=== PATIENT | male | born 1960 | race Caucasian/White ===

== ENCOUNTER → 2017-04-17 | Outpatient (CLI) | payer OTHER ==
[~2017-04-17] MED LIST: ATOR20TA38 PO
--- NOTE | 2017-04-18 03:11 | HKNOTE ---
DATE OF SERVICE: 04/17/2017 The patient is here to have preoperative evaluation. He is scheduled to have a right total hip repl acement on 04/18/2017 and has been cleared for surgery by Dr. Adrián Smith. He has severe arthritis of the left hip as well. Numerous questions were asked and answered. He has not given any blood f or autotransfusion. He understands the risks associated with using hospital blood. He is agreeable to using hospital blood if needed. He has read my booklet on hip arthritis and hip replacement radha samantha as well as my website. Dictated By: BOB LOPEZ/NTS Conf#: [id number] DID#: [id number]
== END | disposition home or self-care (01) ==
LOC: HKI 13:26
DX: Z01.818 Encounter for other preprocedural examination (principal); M16.11 Unilateral primary osteoarthritis, right hip
CPT/HCPCS: G0463

== ENCOUNTER 2017-04-18 05:30 | Inpatient (IN) | payer OTHER ==
[2017-04-18] VITALS (18 sets, daily range): BP systolic 101–121; BP diastolic 53–67; PULSE 54–90; RESP 6–20; Ht 190.5 cm; Wt 108.3 kg
[~2017-04-18] VITALS: Ht 190.5 cm; Wt 108.3 kg
[2017-04-18] MEDS ORDERED: VANCOMYCIN 1 GM (PMX) 250 ML IVPB ONE (06:00)
[2017-04-18] MEDS ORDERED: HIP PAIN COCKTAIL VANCO INJ SCH ×7 (06:00)
[2017-04-18] MEDS ORDERED: ONDANSETRON 4 MG INJ IV ONE (06:00)
[2017-04-18] MEDS ORDERED: oxyCODONE (CR) 10 MG TAB [oxyCONTIN] PO ONE (06:00)
[2017-04-18] MEDS ORDERED: DEXAMETHASONE 4 MG/ML 1 ML INJ IV ONE (06:00)
[2017-04-18] MEDS ORDERED: LANSOPRAZOLE 30 MG CAP PO ONE (06:00)
[2017-04-18] MEDS ORDERED: TRANEXAMIC ACID 2,000 MG in SOD CHLORIDE 0.9% 100 ML IVPB ONE (06:00)
[2017-04-18] MEDS ORDERED: LACTATED RINGER'S 1,000 ML IV* SCH (06:00)
[2017-04-18] MEDS ORDERED: CELECOXIB 200 MG CAP PO ONE (06:00)
[2017-04-18] MEDS ORDERED: ACETAMINOPHEN 1000MG/100ML IV 100 ML IVPB ONE (06:00)
[2017-04-18] MEDS ORDERED: FENTAnyl 50 MCG/ML VIAL ONE (06:17)
[2017-04-18] MEDS ORDERED: ROCURONIUM 50 MG INJ ONE (06:17)
[2017-04-18] MEDS ORDERED: MIDAZOLAM 1 MG/ML 2 ML INJ ONE (06:17)
[2017-04-18] MEDS ORDERED: LIDOCAINE 2% (SDV) 5 ML INJ ONE (06:17)
[2017-04-18] MEDS ORDERED: PROPOFOL 20 ML ONE (06:17)
[2017-04-18] MEDS ORDERED: NEOSTIGMINE 3 MG/3 ML SYRINGE ONE (06:17)
[2017-04-18] MEDS ORDERED: GLYCOPYRROLATE 0.4 MG INJ ONE (06:17)
[2017-04-18] MEDS ORDERED: DEXAMETHASONE 4 MG/ML 1 ML INJ ONE (06:18)
[2017-04-18] MEDS ORDERED: ONDANSETRON 4 MG INJ ONE (06:18)
[2017-04-18] MEDS ORDERED: LIDOCAINE 2%/EPI 30 ML INJ ONE (06:34)
--- NOTE | 2017-04-18 06:35 | HPN ---
Date/Time of Note Date/Time of Note DATE: 04/18/17 TIME: 06:35 Interval H&P Admission Note Pt. seen H&P reviewed: No system changes DEJAH HUGHES PA-C April 18, 2017 06:35
[2017-04-18] MEDS ORDERED: BACITRACIN 50000 UNITS INJ ONE (06:38)
[2017-04-18] MEDS ORDERED: GELATIN SIZE 100 SPONGE ONE ×2 (06:45→10:46)
[2017-04-18] MEDS ORDERED: ATOR20TA38 PO (06:45)
[2017-04-18] MEDS ORDERED: VANCOMYCIN 1 GM INJ ONE (06:45)
[2017-04-18] MEDS ORDERED: POLYMYXIN B 500000 UNIT INJ ONE (06:45)
[2017-04-18] MEDS ORDERED: ROPIVACAINE 0.2% 100 ML ONE (06:45)
[2017-04-18] MEDS ORDERED: HEPARIN 1000 UNITS/ML 10 ML INJ ONE (06:46)
--- NOTE | 2017-04-18 06:51 | HP ---
DATE OF ADMISSION: 04/18/2017 INTERNAL MEDICINE CONSULTATION AND PREOPERATIVE HISTORY AND PHYSICAL EXAMINATION HISTORY OF PRESENT ILLNESS: Dear Dr. 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 The patient has had increasing pain in his right hip, and he has been limping. The patient does try and remain as active as possible but does notice progressive limitation. He is entering the hospital for a hip replacement. PAST MEDICAL HISTORY: Problems include elevated cholesterol and somewhat arthritis. ALLERGIES: HE HAS NO ALLERGIES. PAST SURGICAL HISTORY: None. CURRENT MEDICATIONS: Atorvastatin 20 mg daily. FAMILY HISTORY: The patient is . He has 3 grown children to remain in the house and will b e available to assist him postoperatively. REVIEW OF SYSTEMS: GENERAL: No chills or fever. Weight is stable. HEENT: Does were contact lenses. He has no dizziness or headaches. No difficulty with hearing or swallowing. PULMONARY: He is not short of breath. No cough, no exertional chest pain, no history of hypertensi on or cardiac disease. GASTROINTESTINAL: Asymptomatic. GENITOURINARY: Nocturia 2 times a night with normal stream. MUSCULOSKELETAL: Other joint issues include the other hip as well, although the right is worse. Th e patient, as noted, remains active, likes to surf and play golf. PHYSICAL EXAMINATION: GENERAL: Reveals a pleasant stalky built gentleman in no acute distress, 6 feet 3 inches tall, 240 pounds, BMI of 30. VITAL SIGNS: Blood pressure is 122/68, pulse 51. He is afebrile. HEENT: Reveals some bilateral swimmers ears without infection. LUNGS: Clear. HEART: Tones are regular. I hear no murmurs. ABDOMEN: Without palpable mass, organ, or tenderness. EXTREMITIES: No clubbing, cyanosis, edema. He has good peripheral pulses. His right hip is painfu l and has very poor range of motion. The left hip less so. INITIAL IMPRESSION: 1. Preoperative status, right total hip replacement with a diagnosis of primary osteoarthritis, rig ht hip. 2. Mixed hyperlipidemia. DISCUSSION: At this time, the patient's medical status is acceptable for surgery. Chest x-ray is n ormal. On electrocardiogram, there is low voltage, consistent with his chest wall expansion. He mohan s a mild left axis deviation. Laboratory tests have been done and forwarded to you and are within normal limits. We will be glad to follow him up with you postoperatively. Dictated By: KARY MORGAN MD, SR/MAYDA Conf#: [id number] DID#: [id number]
[2017-04-18] MEDS ORDERED: SUCCINYLCHOLINE CHLORIDE 100 MG/5 ML SYG IV ONE (07:00)
[2017-04-18] MEDS ORDERED: SOD CHLORIDE 0.9% 50 ML, TRANEXAMIC ACID 2,000 MG IRR SCH ×2 (07:30)
[2017-04-18] MEDS ORDERED: ROPIVACAINE 0.2% 100ML BAG INJ ONE (08:00)
[2017-04-18] MEDS ORDERED: hydrALAzine 20 MG INJ ONE (08:12)
[2017-04-18] MEDS ORDERED: MEPERIDINE 25 MG INJ IV PRN (10:00)
[2017-04-18] MEDS ORDERED: hydrALAzine 20 MG INJ IV PRN (10:00)
[2017-04-18] MEDS ORDERED: DIPHENHYDRAMINE 50 MG INJ IV PRN (10:00)
[2017-04-18] MEDS ORDERED: LABETALOL HCL 20MG INJ IV PRN (10:00)
[2017-04-18] MEDS ORDERED: HYDROmorphONE (0.2 MG/ML) 10ML SYG IV PRN ×2 (10:00)
[2017-04-18] MEDS ORDERED: FENTAnyl 50 MCG/ML VIAL IV PRN ×2 (10:00)
[2017-04-18] MEDS ORDERED: MIDAZOLAM 1 MG/ML 2 ML INJ IV PRN (10:00)
[2017-04-18] MEDS ORDERED: EPHEDrine SULFATE 50 MG/5 ML SYG IV PRN (10:00)
[2017-04-18] MEDS ORDERED: ATROPINE 1 MG/10 ML SYRINGE IV PRN (10:00)
[2017-04-18] MEDS ORDERED: OXYCODONE/ACETAMINOPHEN (5/325) TAB PO PRN ×2 (10:00)
[2017-04-18] MEDS ORDERED: morphine (1 MG/ML) 10ML SYRINGE IV PRN ×3 (10:00)
[2017-04-18] MEDS ORDERED: BISACODYL 10 MG SUPP PR PRN (11:30)
[2017-04-18] MEDS ORDERED: SENNA/DOCUSATE NA (8.6MG/50MG) TAB PO PRN (11:30)
[2017-04-18] MEDS ORDERED: HYDROmorphONE 0.2 MG/ML PCA IV PRN (11:30)
[2017-04-18] MEDS ORDERED: oxyCODONE 5 MG TAB PO PRN ×2 (11:30)
[2017-04-18] MEDS ORDERED: MAGNESIUM HYDROXIDE 30ML CUP PO PRN (11:30)
[2017-04-18] MEDS ORDERED: NA PHOSPHATE/BIPHOS 133 ML ENEMA PR PRN (11:30)
[2017-04-18] MEDS ORDERED: DOCUSATE SODIUM 100 MG CAP PO ONE ×2 (11:30→11:57)
[2017-04-18] MEDS ORDERED: BETHANECHOL 25 MG TAB PO PRN (11:30)
[2017-04-18] MEDS ORDERED: ZOLPIDEM 5 MG TAB PO PRN (11:30)
[2017-04-18] MEDS ORDERED: ASPIRIN (EC) 325 MG TAB PO ONE ×2 (11:30→11:57)
[2017-04-18] MEDS ORDERED: DIPHENHYDRAMINE 50 MG INJ IM PRN (11:30)
[2017-04-18] MEDS ORDERED: NACL 0.9% 3 ML SYG IV SCH (11:30)
[2017-04-18] MEDS ORDERED: MEPERIDINE 10 MG/ML 30 ML PCA IV PRN (11:30)
[2017-04-18] MEDS ORDERED: NALOXONE (0.4 MG/ML) INJ IV PRN (11:30)
[2017-04-18] MEDS: ONDANSETRON 4 MG INJ IV PRN ×2 (11:52→11:59)
[2017-04-18] MEDS: HYDROmorphONE (0.2 MG/ML) 10ML SYG IV PRN ×2 (11:52→12:13)
[2017-04-18] MEDS ORDERED: CEFAZOLIN 1 GM/50 ML (PMX) 50 ML IVPB ONE (11:57)
[2017-04-18] MEDS: ACETAMINOPHEN 1000MG/100ML IV 100 ML IVPB SCH ×2 (11:59→19:51)
[2017-04-18] MEDS: CEFAZOLIN 1 GM/50 ML (PMX) 50 ML IVPB SCH ×2 (12:00→20:24)
--- NOTE | 2017-04-18 12:20 | RADRPT ---
PROCEDURE: XR Hip. CLINICAL INDICATION: Postop TECHNIQUE: Single frontal view of the right hip was performed. COMPARISON: None. FINDINGS: A noncemented right hip hemiarthroplasty is present in near anatomic alignment without acute radiogr aphic abnormality. Recent surgical changes seen in the soft tissues. IMPRESSION: 1. Non cemented right hip hemiarthroplasty in near anatomic alignment. RPTAT: EE .Kaiser Orozco MD, MD Date Time Electronically viewed and signed by .Kaiser Orozco MD, on 04/18/2017 12:20 .d/
--- NOTE | 2017-04-18 12:22 | RADRPT ---
PROCEDURE: X-ray fluoroscopy guidance CLINICAL INDICATION: Hip replacement TECHNIQUE: Fluoroscopic guidance was utilized for right hip hemiarthroplasty has been. COMPARISON: None available FINDINGS: Fluoroscopic guidance was utilized for a noncemented right hip hemiarthroplasty. Alignment is near anatomic. 0.7 minutes of fluoroscopy time was utilized for the procedure. A total of 7 fluoroscopi c spot images were obtained. IMPRESSION: 1. X-ray fluoroscopic guidance utilized for non cemented right hip hemiarthroplasty. RPTAT: EE .Kaiser Orozco MD, Date Time Electronically viewed and signed by .Kaiser Orozco MD, on 04/18/2017 12:22 .d/
--- NOTE | 2017-04-18 12:28 | OPR ---
DATE OF OPERATION: 04/18/2017 PREOPERATIVE DIAGNOSIS: Exceedingly severe degenerative osteoarthritis of the right hip. POSTOPERATIVE DIAGNOSIS: Exceedingly severe degenerative osteoarthritis of the right hip. PROCEDURE PERFORMED: Right total hip replacement. SURGEON: Jayro Alejandre MD GOLF COURSE DESIGNER: CLEOPATRA Samuel ANESTHESIOLOGIST: Pratik Norris MD FINDINGS AT SURGERY: The patient was found to have exceedingly severe degenerative osteoarthritis o f the right hip. The femoral head had no normal-appearing articular cartilage. The patient's bone quality was satisfactory for a female of her age. JUSTIFICATION FOR SURGERY: The patient has endstage osteoarthritis of the right hip. There can be no scientific expectation that any further conservative measures would give this patient any relief from her incapacitating pain. DESCRIPTION OF PROCEDURE: The patient was given intravenous antibiotics approximately 1 hour prior to surgery. An epidural anesthetic was initiated in the preanesthesia area. The patient was then m prabhu to the operating room and transferred to a [place] table. General anesthesia was induced with int ubation and full muscle paralysis. Plain and digital x-rays were obtained of the pelvis and the ope rative hip and stored in the computer. Measurements were made on the operative hip to determine the degree of leg length and offset. The intent was to use the operative hip as the basic template for restoring the geometry of the operative hip (i.e., the opposite hip was not used as the template). On the pelvic x-ray, the correct orientation of the pelvis for surgery was determined. Note that [employer] computer was used throughout for making all leg length and angular measurements. The operative thigh, leg and lower abdomen were prepared and draped in the usual sterile fashion. A n oblique incision was made over the lateral aspect of the right thigh. Incision commenced 3 cm dis topher and 3 cm posterior to the anterior superior iliac spine. The total length of the incision was a pproximately 100 mm. The incision was deepened through the subcutaneous fat to expose the fascia ov er the tensor muscle. The fascia was opened to expose the muscle. Bleeding points were cauterized throughout by diathermic coagulation. The fascia over the tensor was incised by blunt and digital r esection. The interval was found between the tensor muscle and the anterior capsule as well as the rectus muscle. Superior and inferior cobra retractors were now placed outside the capsule to expose the anterior surface of the capsule. A third cobra retractor was placed over the brim of the pelvi s. The reflected head of rectus was first elevated with a Loco elevator. The anterior capsule was incised along the length of the intratrochanteric line with the hip externa lly rotated. The incision extended around the proximal femur to the lesser trochanter. The incisio n was now extended vertically to the edge of the acetabulum. The capsular incision was extended fausto ng the anteromedial extent of the anterior rim of the acetabulum. A cobra retractor was placed insi de the capsule medially. The lateral aspect of the anterior capsule was incised and a second cobra retractor was placed inside the capsule around the superior femoral neck. Three turns of traction were placed on the operative leg. The femoral head was now freed from the a cetabulum using a skid. The remaining superior and anterior capsule was incised and the femoral nec k was then incised. A corkscrew was inserted into the femoral head from the anterior aspect of the femoral head. Using the corkscrew as a handle and using a skid, the hip was now completely dislocat ed. The hip was reduced. An osteotomy of the femoral neck was made at the location determined by preope rative templating. The femoral head was now removed. By suitable retraction, the acetabulum was exposed. Soft tissues around the folia removed. The jordan tabulum was enlarged and deepened to 53 mm. The last acetabular reamings were inserted under fluoro scopic control and the correct orientation of the socket and if the reaming were determined by the [employer] computer and direct x-ray visualization. The acetabular component was now installed with an orientation of 42 degrees of abduction and 20 degrees of anteversion. The [employer] computer was used for making these measurements. The proximal femur was now exposed by hyperextending and adducting the hip joint. A retractor was p laced posterior to the femoral neck so as to retract the proximal femur laterally. A hook was then placed around the proximal femur deep to the tensor muscle and as proximal as possible. The hook wa s attached to the table maty and the femur was elevated as high as we could go without force being a pplied to the femur. The superior and proximal femoral capsules were now incised. The cobra retractor was placed behind the posterior rim of the acetabulum. A Steinmann pin was driven into the pelvis superior to the jordan tabulum to retract the soft tissues. A third cobra was placed over the rim of the acetabulum and th e fourth cobra was placed along the medial aspect of the acetabulum. This allowed further mobilizat ion of the proximal femur. A canal finder was used to find the canal. The proximal femur is now br oached starting with the smallest broach and progressively increasing until we felt we could go no f urther. At this point, the size 12 broach was left in place and the hip was reduced. X-rays were t aknette and these x-rays showed that we could broach up 1 more size. The hip was reduced with the shor test femoral head and neck assembly and measurements were made to determine what neck lengths and of fset changes were still needed. The hip was dislocated. The next size broach (size 13) was now installed. This broach was found to be completely stable. The hip was reduced using the 12 mm femoral head and neck assembly and the s ize 13 broach. Measurements indicated that the leg lengths were unchanged. The offset was unchange d. This was felt to be an appropriate combination. The trial components were placed and the retrac tor was placed anterior to the acetabulum and the hip was hyperextended using the [place]ublin table until t he spar touched the floor. This showed that the hip was totally stable in the anterior aspect of th e socket. The leg was detached from the [place] table and the hip was now put through a full functiona l range of motion and was found to be stable to the limits of motion. As trial components were removed, the permanent plastic acetabular component was installed. This wa s followed by installing the permanent femoral component. The table was now returned to a neutral p osition and the hip was dislocated. The wound was frequently irrigated throughout the procedure wit h normal saline containing antibiotics using pulsatile lavage. The permanent femoral component was installed, it fit perfectly and appeared to be completely stable . The permanent femoral head was installed and the hip was reduced. Superficial and deep Hemovac drains were placed. Soft tissues around the hip were injected with a m ixture of Naropin, Toradol, morphine and clonidine for pain management. The deep tissues were now c losed using interrupted Vicryl. The subcutaneous tissues were closed using a Quill type stitch. Th e skin was closed using adriane. The usual sterile dressings were applied and an abduction pillow was placed between the patient's le gs before transferring her to a rcorona. The patient returned to the recovery room in stable conditi on. There were no problems or complications throughout this operation as far as is known. Although multiple x-rays were taken in the operating room and saved, the permanent x-ray record was obtained in the recovery room to be sure that the hip did not dislocate in transfer. IMPLANT COMPONENT INFORMATION: Femoral component: 15 Corail [id number]. Acetabular component: 54 mm [place] with Gription. Femoral head size: 38 mm. Femoral neck size: +12 mm. 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 Leg length: Short 1 mm from the starting length. Offset: Unchanged from the starting offset. Reinfusion was used. The total blood loss was 800 mL and 375 mL was salvaged. Dictated By: JAYRO LOPEZ/MAYDA Conf#: [id number] DID#: [id number]
[2017-04-18] MEDS: ONDANSETRON 4 MG INJ IV SCH ×3 (13:06→23:26)
[2017-04-18] MEDS: DEXTROSE 5%-LR 1,000 ML IV SCH ×2 (14:17→23:59)
[2017-04-18] MEDS ORDERED: TRANEXAMIC ACID IVPB ONE ×2 (14:30→17:30)
[2017-04-18] MEDS ORDERED: SOD CHLORIDE 0.9% IVPB ONE ×2 (14:30→17:30)
--- NOTE | 2017-04-18 17:19 | PN ---
Date/Time of Note Date/Time of Note DATE: 04/18/17 TIME: 17:17 Assessment/Plan VTE Prophylaxis VTE Prophylaxis Intervention: other (asa) Lines/Catheters IV Catheter Type (from Nrsg): Peripheral IV Subjective 24 Hr Interval Summary Free Text/Dictation he is post rthr today vs ok some persistent nausea, no vomit, not much co pain alert lungs clear abd soft absent bs dressing rt thigh is dry, drain in place, no edema if zofran not helpful could try reglan Gastrointestinal: nausea Exam/Review of Systems Vital Signs Vitals Vital Signs Date Time Temp Pulse Resp B/P Pulse Ox O2 Delivery O2 Flow Rate FiO2 04/18/17 15:30 97.6 79 20 106/53 93 Nasal Cannula 2.0 Medications Medications Current Medications Dextrose/Lactated Ringer's (D5-Lr) 1,000 ml @ 80 mls/hr [id number] IV Last administered on 04/18/17 14:17; Admin Dose 80 MLS/HR; Start 04/18/17 at 11:29 Hydromorphone HCl (Dilaudid [employer]) Q4PCA PRN IV SEVERE PAIN 8-10; Start at 11:30; Stop 04/19/17 at 11:29 Meperidine HCl (Demerol [employer]) Q4PCA PRN IV SEVERE PAIN 8-10; Start 04/18/17 at 11:30; Stop 04/19/17 at 11:29 Oxycodone HCl (Roxicodone) 20 mg Q3H PRN PO PAIN LEVEL 8-10; Start 04/18/17 at 11:30 Oxycodone HCl (Roxicodone) 10 mg Q3H PRN PO PAIN LEVEL 4-7; Start 04/18/17 at 11:30 Oxycodone HCl 5 mg 5 mg Q3H PRN PO PAIN LEVEL 1-3; Start 04/18/17 at 11:30 Acetaminophen (Ofirmev 1000mg/ 100ml Iv) 100 ml @ 400 mls/hr Q8H IVPB Last administered on 04/18/17 11:59; Admin Dose 400 MLS/HR; Start 04/18/17 at 11:30 ; Stop 04/20/17 at 03:44 Zolpidem Tartrate (Ambien) 5 mg HS PRN PO INSOMNIA; Start 04/18/17 at 11:30 Ondansetron HCl 4 mg 4 mg Q6H IV Last administered on 04/18/17 16:51; Admin Dose 4 MG; Start 04/18/17 at 11:30; Stop 04/19/17 at 05:31 Cefazolin Sodium (Ancef 1 Gm/50 ml (Pmx)) 50 ml @ 100 mls/hr Q8H IVPB Last administered on 04/18/17t 12:00; Admin Dose 100 MLS/HR; Start 04/18/17 at 11:30 ; Stop 04/19/17 at 03:59 Aspirin (Ecotrin) 325 mg BID PO ; Start 04/19/17 at 09:00 Celecoxib (Celebrex) 200 mg BID PO ; Start 04/19/17 at 09:00 Dexamethasone (Decadron) 4 mg DAILY@07 IV ; Start 04/19/17 at 07:00; Stop at 06:59 Pantoprazole (Protonix Tab) 40 mg DAILY@06 PO ; Start 04/19/17 at 06:00 Docusate Sodium/ Ferrous Fumarate (Timi-Sequels) 1 tab BID PO ; Start 04/19/17 at 09:00 Docusate Sodium (Colace) 200 mg BID PO ; Start 04/19/17 at 09:00; Stop 04/21/17 at 21:01 Simethicone (Mylicon) 80 mg TID PRN PO DISTENSION/GAS/BLOATING; Start 04/18/17 at 11:30 Senna/Docusate Sodium (Senokot-S) 2 tab BID PRN PO CONSTIPATION; Start at 11:30 Magnesium Hydroxide (Milk Of Mag) 30 ml HS PRN PO CONSTIPATION; Start 04/18/17 at 11:30 Bisacodyl (Dulcolax Supp) 10 mg DAILY PRN ND CONSTIPATION; Start 04/18/17 at 11 :30 Sodium Biphosphate/ Sodium Phosphate (Fleet Enema) 133 ml DAILY PRN ND CONSTIPATION; Start 04/18/17 at 11:30 Diphenhydramine HCl (Benadryl) 25 mg Q4H PRN IM ITCHING OR RASH; Start at 11:30 Ketorolac Tromethamine (Toradol) 15 mg DAILY@06 PRN INJ ADMINSTER BY SURGEON ONLY; Start 04/19/17 at 06:00; Stop 04/23/17 at 05:59 Bupivacaine HCl/ Epinephrine Bitart (Marcaine 0.25%/ Epi (Sdv) 30 ml) 20 ml DAILY@06 PRN INJ ADMINSTER BY SURGEON ONLY; Start 04/19/17 at 06:00; Stop at 05:59 Naloxone HCl (Narcan) 0.2 mg Q2M PRN IV DECREASED REPIRATORY RATE; Start at 11:30 KARY MORGAN MD April 18, 2017 17:19
[2017-04-18] MEDS: oxyCODONE 5 MG TAB PO PRN (17:32)
[2017-04-18] MEDS ORDERED: METOCLOPRAMIDE 10 MG INJ IV PRN (20:00)
[2017-04-19 00:05] VITALS: BP 100/55; PULSE 52; RESP 18
[2017-04-19] MEDS: ACETAMINOPHEN 1000MG/100ML IV 100 ML IVPB SCH ×3 (04:09→20:49)
[2017-04-19] MEDS: CEFAZOLIN 1 GM/50 ML (PMX) 50 ML IVPB SCH (04:14)
[2017-04-19] MEDS: DEXTROSE 5%-LR 1,000 ML IV SCH (04:14)
[2017-04-19 04:28] VITALS: BP 104/57; PULSE 58; RESP 18
[2017-04-19] MEDS: ONDANSETRON 4 MG INJ IV SCH (05:21)
[2017-04-19] MEDS: PANTOPRAZOLE (EC) 40 MG TAB PO SCH (05:21)
[2017-04-19] MEDS ORDERED: BUPIVACAINE 0.25%/EPI (SDV) 30 ML INJ INJ PRN (06:00)
[2017-04-19] MEDS ORDERED: KETOROLAC 15 MG INJ INJ PRN (06:00)
[2017-04-19] MEDS: DEXAMETHASONE 4 MG/ML 1 ML INJ IV SCH (06:14)
[2017-04-19 06:21] LABS: ADD SCAN DIFF NO
[2017-04-19 06:23] LABS: BASOPHILS % 0.1 % (0.0-2.0); EOSINOPHILS % 0.2 % (0.0-7.0); HEMATOCRIT 33.7 % (42.0-52.0); HEMOGLOBIN 11.3 g/dl (14.0-18.0); LYMPHOCYTES # 1.2 10^3/ul (0.8-2.9); LYMPHOCYTES % 14.2 % (15.0-51.0); MEAN CORPUSCULAR HEMOGLOBIN 31.2 pg (29.0-33.0); MEAN CORPUSCULAR HGB CONC 33.5 g/dl (32.0-37.0); MEAN CORPUSCULAR VOLUME 93.1 fl (82.0-101.0); MONOCYTE # 0.8 10^3/ul (0.3-0.9); MONOCYTES % 9.5 % (0.0-11.0); NEUTROPHIL # 6.5 10^3/ul (1.6-7.5); NEUTROPHILS % 75.7 % (39.0-77.0); PLATELET COUNT 164 10^3/UL (140-415); RED BLOOD COUNT 3.62 10^6/ul (4.70-6.10); RED CELL DISTRIBUTION WIDTH 12.2 % (11.5-14.5); WHITE BLOOD COUNT 8.6 10^3/ul (4.8-10.8)
--- NOTE | 2017-04-19 07:36 | PN ---
Date/Time of Note Date/Time of Note DATE: 04/19/17 TIME: 07:33 Assessment/Plan VTE Prophylaxis VTE Prophylaxis Intervention: ambulation, SCD's, other (Aspirin 325 mg twice daily) Lines/Catheters IV Catheter Type (from Nrsg): Peripheral IV Assessment/Plan Assessment/Plan -Hemovac Removed Today. 460 cc output. -Continue with Zofran as needed for nausea -Pain Cocktail Given -Pain Meds as needed -Tegaderm with pad provided today and discussion regarding how to use when showering after discharge from hospital discussed in detail today. Discharge plan is to return home. Likely patient will be discharged tomorrow but if needs extra time he will be discharged on postop day 3. -Dress change performed today -OOB with PT -ASA/SCDs for DVT Prophylaxis -Continue monitoring with Internal Medicine -Patient Stable Subjective 24 Hr Interval Summary 56-year-old male postop day 1 status post right total hip arthroplasty via anterior route. Denies any pain complaints to the right hip. Patient did have episode of significant nausea as anesthesia was wearing off. Denies any vomiting. Denies any diarrhea. Overall, patient states that he is doing okay as nausea has subsided. He was up and out of bed yesterday with front wheeled walker. Denies any falls. Denies any chest pain/tightness. Denies any shortness of breath. Sitting upright today when walking in the room and patient is very pleasant. Constitutional: no complaints Exam/Review of Systems Vital Signs Vitals Vital Signs Date Time Temp Pulse Resp B/P Pulse Ox O2 Delivery O2 Flow Rate FiO2 04/19/17 04:28 58 18 104/57 94 Room Air 04/18/17 21:28 2.0 04/18/17 20:01 98.3 Intake and Output 04/18/17 04/18/17 04/19/17 15:00 23:00 07:00 Intake Total 3485.8 ml 1060.8 ml 2380 ml Output Total 805 ml 934 ml 1560 ml Balance 2680.8 ml 126.8 ml 820 ml Exam Free Text/Dictation -Hemovac: Intact. 460 cc output. -Pain Cocktail Drains: Intact -Incision: Clean, Dry and Intact with mild erythema at the wound but no drainage. No tenderness to palpation along surgical wound. Patient denies any pain to the hip. Denies any chills, fever or malaise. -5/5 Tibialis Anterior, EHL Gastrocnemius/Soleus and Peroneals -Normal Sensation -Palpable DP/PT, Capillary Refill <2 secs -No Distal Edema -Negative Juan José Sign/No calf pain -Toes Freely Movable Constitutional: alert, oriented, well developed Results Result Diagram: 04/19/17 0542 DEJAH HUGHES PA-C Apr 19, 2017 07:36
[2017-04-19 07:52] VITALS: BP 107/56; RESP 18
[2017-04-19] MEDS: CELECOXIB 200 MG CAP PO SCH ×2 (09:36→20:49)
[2017-04-19] MEDS: DOCUSATE SODIUM 100 MG CAP PO SCH ×2 (09:36→20:49)
[2017-04-19] MEDS: FERROUS FUMARATE (SR) TAB PO SCH ×2 (09:36→20:49)
[2017-04-19] MEDS: ASPIRIN (EC) 325 MG TAB PO SCH ×2 (09:36→20:49)
--- NOTE | 2017-04-19 12:20 | PN ---
Date/Time of Note Date/Time of Note DATE: 04/19/17 TIME: 12:16 Assessment/Plan VTE Prophylaxis VTE Prophylaxis Intervention: ambulation, SCD's (ambulation, asa) Lines/Catheters IV Catheter Type (from Nrsg): Peripheral IV Urinary Cath still in place: No Subjective 24 Hr Interval Summary Free Text/Dictation second post op day, feels much better, no sig nausea, not lightheaded passing urine with no difficulty getting up now with pt, very stable vs ok, cbc ok lungs clear abd soft, bs present imp improved, ok for dc tomorrow per ortho clearance restart home lipid meds after dc Exam/Review of Systems Vital Signs Vitals Vital Signs Date Time Temp Pulse Resp B/P Pulse Ox O2 Delivery O2 Flow Rate FiO2 04/19/17 07:52 97.9 69 18 107/56 93 04/19/17 04:28 Room Air 04/18/17 21:28 2.0 Intake and Output 04/18/17 04/18/17 04/19/17 15:00 23:00 07:00 Intake Total 3485.8 ml 1060.8 ml 2380 ml Output Total 805 ml 934 ml 1560 ml Balance 2680.8 ml 126.8 ml 820 ml Results Result Diagram: 04/19/17 0542 Results 24 hrs Laboratory Tests Test 04/19/17 05:42 White Blood Count 8.6 Red Blood Count 3.62 L Hemoglobin 11.3 L Hematocrit 33.7 L Mean Corpuscular Volume 93.1 Mean Corpuscular Hemoglobin 31.2 Mean Corpuscular Hemoglobin Concent 33.5 Red Cell Distribution Width 12.2 Platelet Count 164 Mean Platelet Volume 9.0 Neutrophils % 75.7 Lymphocytes % 14.2 L Monocytes % 9.5 Eosinophils % 0.2 Basophils % 0.1 Nucleated Red Blood Cells % 0.0 Neutrophils # 6.5 Lymphocytes # 1.2 Monocytes # 0.8 Eosinophils # 0.0 Basophils # 0.0 Nucleated Red Blood Cells # 0.0 Medications Medications Current Medications Dextrose/Lactated Ringer's (D5-Lr) 1,000 ml @ 80 mls/hr [id number] IV Last administered on 04/19/17t 04:14; Admin Dose 80 MLS/HR; Start 04/18/17 at 11:29 Oxycodone HCl (Roxicodone) 20 mg Q3H PRN PO PAIN LEVEL 8-10; Start 04/18/17 at 11:30 Oxycodone HCl (Roxicodone) 10 mg Q3H PRN PO PAIN LEVEL 4-7; Start 04/18/17 at 11:30 Oxycodone HCl 5 mg 5 mg Q3H PRN PO PAIN LEVEL 1-3 Last administered on 17:32; Admin Dose 5 MG; Start 04/18/17 at 11:30 Acetaminophen (Ofirmev 1000mg/ 100ml Iv) 100 ml @ 400 mls/hr Q8H IVPB Last administered on 04/19/17 12:00; Admin Dose 400 MLS/HR; Start 04/18/17 at 11:30; Stop 04/20/17 at 03:44 Zolpidem Tartrate (Ambien) 5 mg HS PRN PO INSOMNIA; Start 04/18/17 at 11:30 Aspirin (Ecotrin) 325 mg BID PO Last administered on 04/19/17 09:36; Admin Dose 325 MG; Start 04/19/17 at 09:00 Celecoxib (Celebrex) 200 mg BID PO Last administered on 04/19/17 09:36; Admin Dose 200 MG; Start 04/19/17 at 09:00 Dexamethasone (Decadron) 4 mg DAILY@07 IV Last administered on 04/19/17 06:14; Admin Dose 4 MG; Start 04/19/17 at 07:00; Stop 04/22/17 at 06:59 Pantoprazole (Protonix Tab) 40 mg DAILY@06 PO Last administered on 04/19/17 05: 21; Admin Dose 40 MG; Start 04/19/17 at 06:00 Docusate Sodium/ Ferrous Fumarate (Timi-Sequels) 1 tab BID PO Last administered on 04/19/17 09:36; Admin Dose 1 TAB; Start 04/19/17 at 09:00 Docusate Sodium (Colace) 200 mg BID PO Last administered on 04/19/17 09:36; Admin Dose 200 MG; Start 04/19/17 at 09:00; Stop 04/21/17 at 21:01 Simethicone (Mylicon) 80 mg TID PRN PO DISTENSION/GAS/BLOATING; Start 04/18/17 at 11:30 Senna/Docusate Sodium (Senokot-S) 2 tab BID PRN PO CONSTIPATION; Start at 11:30 Magnesium Hydroxide (Milk Of Mag) 30 ml HS PRN PO CONSTIPATION; Start 04/18/17 at 11:30 Bisacodyl (Dulcolax Supp) 10 mg DAILY PRN [place] CONSTIPATION; Start 04/18/17 at 11 :30 Sodium Biphosphate/ Sodium Phosphate (Fleet Enema) 133 ml DAILY PRN NV CONSTIPATION; Start 04/18/17 at 11:30 Diphenhydramine HCl (Benadryl) 25 mg Q4H PRN IM ITCHING OR RASH; Start at 11:30 Ketorolac Tromethamine (Toradol) 15 mg DAILY@06 PRN INJ ADMINSTER BY SURGEON ONLY; Start 04/19/17 at 06:00; Stop 04/23/17 at 05:59 Bupivacaine HCl/ Epinephrine Bitart (Marcaine 0.25%/ Epi (Sdv) 30 ml) 20 ml DAILY@06 PRN INJ ADMINSTER BY SURGEON ONLY; Start 04/19/17 at 06:00; Stop at 05:59 Naloxone HCl (Narcan) 0.2 mg Q2M PRN IV DECREASED REPIRATORY RATE; Start at 11:30 Metoclopramide HCl (Reglan) 5 mg Q6H PRN IV nausea Last administered on t 19:51; Admin Dose 5 MG; Start 04/18/17 at 20:00 KARY MORGAN MD Apr 19, 2017 12:20
[2017-04-19 19:58] VITALS: BP 124/56; RESP 20
[2017-04-19] MEDS: oxyCODONE 5 MG TAB PO PRN (20:49)
[2017-04-19] MEDS ORDERED: ATORVASTATIN 20 MG TAB PO SCH (21:00)
[2017-04-20] MEDS: ACETAMINOPHEN 1000MG/100ML IV 100 ML IVPB SCH (04:15)
[2017-04-20 04:49] LABS: ADD SCAN DIFF NO
[2017-04-20 04:56] LABS: BASOPHILS % 0.1 % (0.0-2.0); EOSINOPHILS # 0.1 10^3/ul (0.0-0.5); HEMATOCRIT 33.1 % (42.0-52.0); HEMOGLOBIN 11.1 g/dl (14.0-18.0); LYMPHOCYTES # 1.6 10^3/ul (0.8-2.9); LYMPHOCYTES % 23.3 % (15.0-51.0); MEAN CORPUSCULAR HEMOGLOBIN 31.4 pg (29.0-33.0); MEAN CORPUSCULAR HGB CONC 33.5 g/dl (32.0-37.0); MEAN CORPUSCULAR VOLUME 93.8 fl (82.0-101.0); MEAN PLATELET VOLUME 8.7 fl (7.4-10.4); MONOCYTE # 0.8 10^3/ul (0.3-0.9); MONOCYTES % 10.6 % (0.0-11.0); NEUTROPHIL # 4.6 10^3/ul (1.6-7.5); NEUTROPHILS % 64.6 % (39.0-77.0); PLATELET COUNT 126 10^3/UL (140-415); RED BLOOD COUNT 3.53 10^6/ul (4.70-6.10); RED CELL DISTRIBUTION WIDTH 12.4 % (11.5-14.5); WHITE BLOOD COUNT 7.1 10^3/ul (4.8-10.8)
[2017-04-20] MEDS: PANTOPRAZOLE (EC) 40 MG TAB PO SCH (06:13)
[2017-04-20] MEDS: DEXAMETHASONE 4 MG/ML 1 ML INJ IV SCH (06:13)
--- NOTE | 2017-04-20 07:45 | PN ---
Date/Time of Note Date/Time of Note DATE: 04/20/17 TIME: 07:42 Assessment/Plan VTE Prophylaxis VTE Prophylaxis Intervention: ambulation, SCD's, other (Aspirin 325 mg twice daily) Lines/Catheters IV Catheter Type (from Nrsg): Peripheral IV Mac in Place (from Nrsg): No Assessment/Plan Assessment/Plan -Pain Cocktail Given -Pain Meds as needed -Dress change performed today -ASA for DVT Prophylaxis x 6 weeks outpatient discussed. -Continue monitoring as outpatient on discharge -Follow-up at scheduled postop outpatient appointment or sooner if there is any issue. -Tegaderm dressings given with specific instructions to use as outpatient to keep wound dry until adriane are moved around 10 days. -Anterior hip precautions discussed -Patient Stable -Discharge to Home with home health Subjective 24 Hr Interval Summary 56-year-old male postop day 2 status post right total hip arthroplasty via anterior route. Patient states that he continues to do well. While attempting to defecate yesterday he felt that the toilet was too low and had a sudden jolt of pain to the hip that was self-limiting. Patient denies any pain complaints overall. Patient is walking up and down the hallway with physical therapy and use of front wheeled walker. He is able to climb and descend stairs. Patient is doing well and would like to go home today. Denies any ongoing nausea. Constitutional: no complaints Pain Control: well controlled Exam/Review of Systems Vital Signs Vitals Vital Signs Date Time Temp Pulse Resp B/P Pulse Ox O2 Delivery O2 Flow Rate FiO2 04/19/17 19:58 98.5 66 20 124/56 100 04/19/17 04:28 Room Air 04/18/17 21:28 2.0 Intake and Output 04/19/17 04/19/17 04/20/17 15:00 23:00 07:00 Intake Total 100 ml 1910 ml 850 ml Output Total 1100 ml Balance 100 ml 1910 ml -250 ml Exam Free Text/Dictation -Hemovac: Removed -Pain Cocktail Drains: Intact -Incision: Clean, Dry and Intact without any redness or drainage -5/5 Tibialis Anterior, EHL Gastrocnemius/Soleus and Peroneals -While lying supine he is able to actively flex up to 45 today. -Normal Sensation -Palpable DP/PT, Capillary Refill <2 secs -No Distal Edema -Negative Juan José Sign/No calf pain -Toes Freely Movable Constitutional: alert, oriented, well developed Results Result Diagram: 04/20/17 0412 DEJAH HUGHES PA-C Apr 20, 2017 07:45
--- NOTE | 2017-04-20 07:47 | PDOCDIS ---
Discharge Instructions DIAGNOSIS Discharge Diagnosis: Status post right total hip arthroplasty via anterior route CONDITION Patient Condition: Stable HOME CARE INSTRUCTIONS: Diet Instructions: Regular ACTIVITY: Activity Restrictions: Slowly Increase Activity Rest between Activity Avoid heavy lifting No Sexual Activity Do not Drive Do not operate Machinery Do not operate Power Tool Avoid Heavy Housework Keep Limb Elevated (While at rest. Ice modalities encouraged.) Weight Bearing (As tolerated with front wheeled walker as needed. Gradually progressed to independent ambulation when comfortable and confident.) Bathing Restrictions: Shower (Using Tegaderm with pad. Apply prior to shower. After shower, dab dry and let air dry for a couple of minutes before removing. Do not keep Tegaderm on throughout the day. Repeat the steps until adriane are removed around 10 days postop.) FOLLOW UP/APPOINTMENTS Appointments Follow-up on 05/09/2017 at 2:15 PM. DEJAH HUGHES PA-C Apr 20, 2017 07:47
--- NOTE | 2017-04-20 07:53 | DS ---
Date/Time of Note Date/Time of Note DATE: 04/20/17 TIME: 07:48 Discharge Summary Admission/Discharge Info Admit Date/Time April 18, 2017 at 05:30 Discharge Date/Time 04/20/17 Final Diagnosis S/P right total hip arthroplasty via anterior route Patient Condition: Stable Hospital Course On the day of admission, the patient underwent right total hip arthroplasty via anterior route Intraoperative complications: None Postoperative complications: None The patient was given prophylactic antibiotics and anticoagulants. On the day of surgery and first postoperative day patient was started on gait training and was taught usual restrictions following anterior hip replacement Suction drain removed on the first postoperative day and the dressings were changed. The wound was found to be clean and healing well. There was no sign of infection. Pain cocktail given. On the second postoperative day, patient continued with inpatient PT. Dressings were changed. Wound was found to be clean and healing well. No signs of infection. Pain cocktail given. On the day of discharge, the wound was clean and healing well; there was no sign of infection. The dressings were changed. Discharge Temperature: 98.1 Discharge White Blood Cell Count: 7.1 Discharge Hemoglobin: 11.1 The patient was discharged home with home health. Arrangements were made for visiting nurses and home health/physical therapy. Tegaderm with pad also provided for patient. Instructions given on how to use to keep wound dry while showering. Patient may discontinue use of Tegaderm with pad after adriane have been removed around 10 days postoperatively. The patient will be seen in office at scheduled postoperative evaluation date given on their preoperative exam. Should patient complain of any problems prior to scheduled postoperative evaluation date, they may call into outpatient clinic to determine if they need to be scheduled at sooner appointment to be seen immediately if needed. Discharge medications: As per medication reconciliation form Diet: Same as preadmission diet. This is Dejah Gastelum PA-C dictating discharge summary for Dr. Jayro Alejandre. Home Meds Reported Medications Atorvastatin Calcium* (Atorvastatin Calcium*) 20 Mg Tablet, 20 MG PO QHS, #30 TAB 04/18/17 Follow-up Plan f/u 05/09/17 at 2:15PM Continue anterior hip precautions. Primary Care Provider Not On Staff Doctor Pending Labs Laboratory Tests Test 04/20/17 04:12 White Blood Count 7.110^3/ul (4.8-10.8) Red Blood Count 3.5310^6/ul (4.70-6.10) Hemoglobin 11.1g/dl (14.0-18.0) Hematocrit 33.1% (42.0-52.0) Mean Corpuscular Volume 93.8fl (82.0-101.0) Mean Corpuscular Hemoglobin 31.4pg (29.0-33.0) Mean Corpuscular Hemoglobin Concent 33.5g/dl (32.0-37.0) Red Cell Distribution Width 12.4% (11.5-14.5) Platelet Count 77345^3/UL (140-415) Mean Platelet Volume 8.7fl (7.4-10.4) Neutrophils % 64.6% (39.0-77.0) Lymphocytes % 23.3% (15.0-51.0) Monocytes % 10.6% (0.0-11.0) Eosinophils % 1.0% (0.0-7.0) Basophils % 0.1% (0.0-2.0) Nucleated Red Blood Cells % 0.0/100WBC (0.0-0.0) Neutrophils # 4.610^3/ul (1.6-7.5) Lymphocytes # 1.610^3/ul (0.8-2.9) Monocytes # 0.810^3/ul (0.3-0.9) Eosinophils # 0.110^3/ul (0.0-0.5) Basophils # 0.010^3/ul (0.0-0.1) Nucleated Red Blood Cells # 0.010^3/ul (0.0-0.0) DEJAH HUGHES PA-C Apr 20, 2017 07:53
--- NOTE | 2017-04-20 08:31 | PN ---
Date/Time of Note Date/Time of Note DATE: 04/20/17 TIME: 08:29 Assessment/Plan VTE Prophylaxis VTE Prophylaxis Intervention: ambulation (scds) Lines/Catheters IV Catheter Type (from Nrsg): Peripheral IV Urinary Cath still in place: No Subjective 24 Hr Interval Summary Free Text/Dictation doing well post op, vs ok, amb well with p.t. for discharge home today, continue home meds, routine care with pcp alert, lungs clear, abd soft good b.s. wound dressed, no bleeding or bruising, no distal edema agree w d/c plans Exam/Review of Systems Vital Signs Vitals Vital Signs Date Time Temp Pulse Resp B/P Pulse Ox O2 Delivery O2 Flow Rate FiO2 04/19/17 19:58 98.5 66 20 124/56 100 04/19/17 04:28 Room Air 04/18/17 21:28 2.0 Intake and Output 04/19/17 04/19/17 04/20/17 15:00 23:00 07:00 Intake Total 100 ml 1910 ml 850 ml Output Total 1100 ml Balance 100 ml 1910 ml -250 ml Results Result Diagram: 04/20/17 0412 Results 24 hrs Laboratory Tests Test 04/20/17 04:12 White Blood Count 7.1 Red Blood Count 3.53 L Hemoglobin 11.1 L Hematocrit 33.1 L Mean Corpuscular Volume 93.8 Mean Corpuscular Hemoglobin 31.4 Mean Corpuscular Hemoglobin Concent 33.5 Red Cell Distribution Width 12.4 Platelet Count 126 #L Mean Platelet Volume 8.7 Neutrophils % 64.6 Lymphocytes % 23.3 Monocytes % 10.6 Eosinophils % 1.0 Basophils % 0.1 Nucleated Red Blood Cells % 0.0 Neutrophils # 4.6 Lymphocytes # 1.6 Monocytes # 0.8 Eosinophils # 0.1 Basophils # 0.0 Nucleated Red Blood Cells # 0.0 Medications Medications Current Medications Oxycodone HCl (Roxicodone) 20 mg Q3H PRN PO PAIN LEVEL 8-10; Start 04/18/17 at 11:30 Oxycodone HCl (Roxicodone) 10 mg Q3H PRN PO PAIN LEVEL 4-7; Start 04/18/17 at 11:30 Oxycodone HCl (Roxicodone) 5 mg Q3H PRN PO PAIN LEVEL 1-3 Last administered on 04/19/17 20:49; Admin Dose 5 MG; Start 04/18/17 at 11:30 Zolpidem Tartrate (Ambien) 5 mg HS PRN PO INSOMNIA; Start 04/18/17 at 11:30 Aspirin (Ecotrin) 325 mg BID PO Last administered on 04/19/17 20:49; Admin Dose 325 MG; Start 04/19/17 at 09:00 Celecoxib (Celebrex) 200 mg BID PO Last administered on 04/19/17 20:49; Admin Dose 200 MG; Start 04/19/17 at 09:00 Dexamethasone (Decadron) 4 mg DAILY@07 IV Last administered on 04/20/17 06:13; Admin Dose 4 MG; Start 04/19/17 at 07:00; Stop 04/22/17 at 06:59 Pantoprazole (Protonix Tab) 40 mg DAILY@06 PO Last administered on 04/20/17 06: 13; Admin Dose 40 MG; Start 04/19/17 at 06:00 Docusate Sodium/ Ferrous Fumarate (Timi-Sequels) 1 tab BID PO Last administered on 04/19/17 20:49; Admin Dose 1 TAB; Start 04/19/17 at 09:00 Docusate Sodium (Colace) 200 mg BID PO Last administered on 04/19/17 20:49; Admin Dose 200 MG; Start 04/19/17 at 09:00; Stop 04/21/17 at 21:01 Simethicone (Mylicon) 80 mg TID PRN PO DISTENSION/GAS/BLOATING; Start 04/18/17 at 11:30 Senna/Docusate Sodium (Senokot-S) 2 tab BID PRN PO CONSTIPATION; Start at 11:30 Magnesium Hydroxide (Milk Of Mag) 30 ml HS PRN PO CONSTIPATION; Start 04/18/17 at 11:30 Bisacodyl (Dulcolax Supp) 10 mg DAILY PRN [place] CONSTIPATION; Start 04/18/17 at 11 :30 Sodium Biphosphate/ Sodium Phosphate (Fleet Enema) 133 ml DAILY PRN [place] CONSTIPATION; Start 04/18/17 at 11:30 Diphenhydramine HCl (Benadryl) 25 mg Q4H PRN IM ITCHING OR RASH; Start at 11:30 Ketorolac Tromethamine (Toradol) 15 mg DAILY@06 PRN INJ ADMINSTER BY SURGEON ONLY; Start 04/19/17 at 06:00; Stop 04/23/17 at 05:59 Bupivacaine HCl/ Epinephrine Bitart (Marcaine 0.25%/ Epi (Sdv) 30 ml) 20 ml DAILY@06 PRN INJ ADMINSTER BY SURGEON ONLY; Start 04/19/17 at 06:00; Stop at 05:59 Naloxone HCl (Narcan) 0.2 mg Q2M PRN IV DECREASED REPIRATORY RATE; Start at 11:30 Metoclopramide HCl (Reglan) 5 mg Q6H PRN IV nausea Last administered on 19:51; Admin Dose 5 MG; Start 04/18/17 at 20:00 Atorvastatin Calcium (Lipitor) 20 mg HS PO Last administered on 04/19/17 20:48 ; Admin Dose 20 MG; Start 04/19/17 at 21:00 KARY MORGAN MD Apr 20, 2017 08:31
[2017-04-20] MEDS: ASPIRIN (EC) 325 MG TAB PO SCH (09:04)
[2017-04-20] MEDS: CELECOXIB 200 MG CAP PO SCH (09:04)
[2017-04-20] MEDS: DOCUSATE SODIUM 100 MG CAP PO SCH (09:04)
[2017-04-20] MEDS: FERROUS FUMARATE (SR) TAB PO SCH (09:04)
[2017-04-20 09:39] VITALS: BP 130/58; RESP 20
== END 2017-04-20 14:05 | disposition home health service (06) | DRG 470 ==
LOC: REC 05:30 → MS1 12:37
PROC: 0SR902A Replacement of Right Hip Joint with Metal on Polyethylene Synthetic Substitute, Uncemented, Open Approach (ICD-10-PCS; principal; 2017-04-18 07:30)
DX: M16.11 Unilateral primary osteoarthritis, right hip (principal); E78.2 Mixed hyperlipidemia
CPT/HCPCS: 73500; 73530; 85025; 86850; 86900; 86901; 86920; 87081; 97110; 97116; 97162; 97165; 97530; A4310; J0131; J0171; J0360; J0690; J0735; J1100; J1170; J1644; J1885; J2250; J2274; J2405; J2710; J2765; J2795; J3010; J3370; J7120; J7121; J7999

== ENCOUNTER → 2017-05-08 | Outpatient (CLI) | payer OTHER ==
--- NOTE | 2017-05-08 14:02 | PN ---
Date/Time of Note Date/Time of Note DATE: 05/08/17 TIME: 13:58 Outpatient Progress Note Chief Complaint 3 weeks status post right total hip replacement HPI 56-year-old male presents today for three-week appointment status post right total hip replacement via anterior route on 04/18/2017. Patient states that his pain is "off and on." Patient states that pain initially was severe usually at night, but over time pain is improved. On average, patient states that his pain is a 5/10 on the pain scale when present. Pain can increase depending on level of activity. Patient states that he does ambulate independently but at times he uses a single-point cane for assisted ambulation. Patient states that depending on the chair that he is sitting and he can have discomfort to the right hip. Denies any calf pain, chest pain/tightness. Denies any difficulty breathing. Denies any complications with the wound. Patrick have been removed and Steri-Strips were applied. Patient feels that he is slowly progressing as he is using less [place] for pain exacerbation. Continues with aspirin 325 mg twice daily for DVT prophylaxis. Review of Systems Const: No Fever, no chills, no Fatigue, normal appetite, no diaphoresis. Resp: No SOB, no wheezing, no chest pain. CV: No chest pain, no palpitaions, no MENCHACA. Physical Exam Blood pressure is 124/63, temperature is 98.4, pulse is 60, respiratory rate is 12, height is 6 foot 3 inches, weight is 239 pounds General Appearance: well-developed, well-nourished, in no acute distress. Right hip: Wound continues to heal. Surgical wound is clean dry and intact with no signs of infection. [place] have been removed. Steri-Strips applied. No erythema surrounding the wound. No tenderness to palpation to the right hip. Normal sensory examination to light touch throughout the right lower extremity. Negative Homans sign. 2+ pedal pulses. Patient is seated comfortably at 90. Patient can raise an additional 10 from 90 position. Internal and external rotation not performed today as he is 3 weeks status post hip replacement. Allergies Coded Allergies: No Known Allergy (Unverified , 04/18/17) Assessment/Plan -Wound healing well after staple removal. No signs of infection. -Continue ASA 325 mg twice daily for DVT prophylaxis until 6 weeks status post surgery. -Continue hip precautions until 6 weeks status post surgery -No signs of DVT. -Patient progressing well. -Follow-up at 6 week postop appointment. X-rays will be performed at 6 weeks postoperative appointment. -Patient made aware that they may follow-up sooner, should they experience any issues or complications as we will be glad to see them. -Dental prophylaxis card provided today. -At home exercises discussed today. Patient continues to improve but if he does have complaints of limited functionality on follow-up in 3 weeks, physical therapy may be prescribed if needed. Antibiotic card provided for patient. Patient made aware that dental prophylaxis will be necessary prior to any dental procedure for the remainder of their lifetime. Patient is aware that they must contact their dentist prior to any procedure to inform them of previous joint replacement with prosthesis implant so appropriate antibiotic may be prescribed to lower risk of joint infection status post surgery. Card will also serve as confirmation should patient be traveling and have to go through security such as at an airport. Medications Home Meds Reported Medications Atorvastatin Calcium* (Atorvastatin Calcium*) 20 Mg Tablet, 20 MG PO QHS, #30 TAB 04/18/17 DEJAH HUGHES PA-C May 08, 2017 14:02
== END | disposition home or self-care (01) ==
LOC: HKI 13:30
DX: Z47.1 Aftercare following joint replacement surgery (principal); Z96.641 Presence of right artificial hip joint; M25.551 Pain in right hip

== ENCOUNTER → 2017-05-29 | Outpatient (CLI) | payer OTHER ==
--- NOTE | 2017-05-29 14:24 | PN ---
Date/Time of Note Date/Time of Note DATE: 05/29/17 TIME: 14:15 Outpatient Progress Note Chief Complaint 6 week postoperative visit status post right total hip replacement HPI 56-year-old male presents today for 6 week postoperative visit status post right total hip replacement via anterior route. Denies any pain to the right hip. Patient states that he continues to progress but has significant concern regarding limited/inability to flex the right hip only while lying supine. While patient is in a seated position he is able to flex the hip but with give way weakness, per patient account. Standing he is able to flex the hip equal to that of the left hip. Denies any calf pain, chest pain/tightness. Patient has been doing well and denies any paresthesias or sensory abnormality status post surgery. Review of Systems Const: No Fever, no chills, no Fatigue, normal appetite, no diaphoresis. Resp: No SOB, no wheezing, no chest pain. CV: No chest pain, no palpitaions, no MENCHACA. Physical Exam Blood pressure is 135/64, temperature is 98.8, pulse is 59, respiratory rate is 12, height is 6 foot 3 inches, weight is 239 pounds General Appearance: well-developed, well-nourished, in no acute distress. Right hip: Well-healed surgical scar on inspection. Patient is walking with slight limp. He is able to stand and flex the hip up to about 85. Normal abduction. Negative Homans sign. No assisted ambulatory device with ambulation. Slight limp with ambulation. No tenderness to palpation and patient denies any pain with range of motion. Give way weakness with flexion of the hip while being seated in a 90 position. While standing patient has about 4+/5 strength on resistance. Unable to perform straight leg raise while lying supine. Imaging X-ray of the right hip performed on 05/29/2017 showing all components appearing well aligned, attached and integrated to the bone. No signs of any lucency between metal and bone. Venous Doppler performed on 04/26/2017 from [facility] vascular group with the conclusion of "normal right deep venous duplex scan, no DVT" Allergies Coded Allergies: No Known Allergy (Unverified , 04/18/17) Assessment/Plan -Patient progressing well -Surgical wound continues to heal well. -No signs of infection or DVT on exam. -X-rays showing no abnormalities in regards to prosthesis attachment to bone. -Antibiotic prophylaxis card provided today. -Patient may discontinue hip precautions at this time. -Follow-up 6 months status post surgery. If patient is doing well at that time , possible follow-up on as-needed basis from that point. -Continue with at home exercises that were provided on his previous visit in regards to flexion especially with flexion while lying supine to the right hip. Patient may initiate aqua therapy as there is well-healed surgical scarring at this stage. Advised no high intensity activity until 3 months postoperatively and he may resume that only if there is been no complications and strengthening to the right hip has improved. Patient states understanding and compliance. Dental prophylaxis discussed in detail today. Patient given prophylaxis card with antibiotic options. Should patient have allergy to specific medication ( eg penicillin) alternative options are also provided on the card. Patient is aware that antibiotics should be taken prior to any procedures to prevent increased risk of infection to the joint. Patient is aware that this will be for the rest of their life. Patient states understanding and compliance. Dr. Alejandre was present for evaluation today and agrees with plan. Medications Home Meds Reported Medications Atorvastatin Calcium* (Atorvastatin Calcium*) 20 Mg Tablet, 20 MG PO QHS, #30 TAB 04/18/17 DEJAH HUGHES PA-C May 29, 2017 14:24
--- NOTE | 2017-05-29 15:06 | RADRPT ---
PROCEDURE: XR Right hip and pelvis. CLINICAL INDICATION: Right hip pain. Pelvic pain. Postop. TECHNIQUE: Two views. Frontal pelvis and lateral right hip. COMPARISON: 09/21/2016. FINDINGS: There is no fracture or dislocation. The soft tissues are normal. There is a right hip total arthroplasty which appears satisfactory. There are degenerative changes of the left hip with joint space narrowing and osteophytes. There is no lytic or blastic lesion. The upper pelvis is not completely included on the image. IMPRESSION: 1. Satisfactory postoperative appearance of the right hip. 2. 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 RPTAT: QQ .Darion Malloy MD, MD Date Time Electronically viewed and signed by .Darion Malloy MD, on 05/29/2017 15:05 .R/
== END | disposition home or self-care (01) ==
LOC: HKI 13:12
DX: Z47.1 Aftercare following joint replacement surgery (principal); Z96.641 Presence of right artificial hip joint
CPT/HCPCS: 73502

== ENCOUNTER → 2018-10-31 | Outpatient (CLI) | END | disposition home or self-care (01) ==